=== PATIENT | male | born 1965 | race Caucasian/White ===

== ENCOUNTER 2016-12-17 23:30 | Inpatient (IN) ==
--- NOTE | 2016-12-18 01:23 | Emergency Department Note ---
Disposition Clinical Impression: Cellulitis and abscess of left lower extremity Disposition: Admitted As Inpatient Condition: Fair Referrals: NO,PCP [Primary Care Provider] - Forms: ED Satisfaction Letter Time of Disposition: 05:40 Wound/Laceration HPI - General Chief Complaint: ED Extremity Problem,Nontraumatic Stated Complaint: left leg seeping Time Seen by Provider: 12/18/16 00:41 Source: patient Mode of arrival: ambulatory Limitations: no limitations Nursing Notes Reviewed: Yes Vital Signs Reviewed: Yes - History of Present Illness HPI Narrative: Alert and oriented nontoxic-appearing 51-year-old male presents for evaluation of a left posterior thigh wound that has been present for the past 5 months. The patient states that he is underwent multiple rounds of oral antibiotics including Bactrim and Keflex. He states that he has been prescribed topical antibiotic ointments that he believes was mupirocin, however the wound remains and he feels as though it is worsening. He complains of some generalized malaise but denies any fever, chills, nausea, or vomiting. He does complain of a moderate degree of purulent drainage from the area of ulceration on his left posterior thigh. He states that that he male of drainage has increased over the course of the past several days. He just finished a round of Keflex 10 days ago per patient report. Onset (ago): month(s) (5) Extremity Location: Left: thigh Patient Tetanus UTD: Yes Treatments prior to arrival: other (Oral Antibiotics, multiple rounds) - Related Data Previous Rx's Medication Instructions Recorded Sulfamethoxazole/Trimeth DS 1 each PO BID #14 tablet 10/09/16 [Bactrim DS] cephALEXin [Keflex] 500 mg PO TID #21 capsule 10/09/16 Allergies Allergy/AdvReac Type Severity Reaction Status Date / Time No Known Allergies Allergy Verified 12/18/16 00:03 All systems ED: reviewed and negative except as stated. Constitutional: Denies: fever, chills, weakness, weight change Eyes: Denies: eye pain, eye discharge, vision change ENT ED: Denies: ear pain, throat pain, dental pain, hearing loss, epistaxis, congestion, dysphagia Cardiovascular: Denies: chest pain, palpitations, dyspnea on exertion, edema, syncope Respiratory: Denies: cough, dyspnea, wheezes, hemoptysis, stridor Gastrointestinal: Denies: abdominal pain, nausea, vomiting, diarrhea, constipation, hematemesis, melena, hematochezia Genitourinary: Denies: urgency, dysuria, frequency, hematuria Musculoskeletal: Denies: back pain, neck pain, arthralgia, myalgia Integumentary: Reports: as per HPI, other (Left thigh wound). Denies: rash, abrasion, lesions Neurological: Denies: headache, weakness, numbness, paresthesias, confusion, abnormal gait, vertigo Psychiatric: Denies: anxiety, depression, suicidal thoughts, homicidal thoughts , auditory hallucinations, visual hallucinations Endocrine: Denies: fatigue Hematological/Lymphatic: Denies: easy bleeding, easy bruising Allergic/Immunologic: Denies: facial swelling, urticaria Past Medical History - Past Medical History Attestation: Yes The following information was validated with the patient. Source: patient, nursing notes reviewed Medical history: Reports: other Psychiatric history: Reports: no psych history - Social History Smoking Status: Former smoker Smokeless Tobacco Status: No Alcohol use: Reports: occasionally Drug use: Reports: none Physical Exam - General Limitations: no limitations General appearance: alert - Head Head exam: atraumatic, normocephalic, normal inspection - Eye Eye exam: Present: normal appearance, PERRL, EOMI. Absent: nystagmus - ENT ENT exam: mucous membranes moist - Neck Neck exam: Present: normal inspection, full ROM, trachea midline - Chest Chest inspection: Present: normal inspection, symmetric chest wall rise - Respiratory Respiratory exam: Present: normal lung sounds bilaterally. Absent: respiratory distress, wheezes, stridor, accessory muscle use, prolonged expiratory phase - Cardiovascular Cardiovascular exam: Present: regular rate, normal rhythm, normal heart sounds - Abdominal Exam Abdominal exam: Present: soft, Non-Tender, normal bowel sounds. Absent: tenderness, distention, guarding, rebound, rigidity - Extremities Exam Extremities exam: Present: normal inspection, full ROM. Absent: tenderness, pedal edema - Expanded Lower Extremity Exam Upper leg exam: Present: other 1 - Approximately 1 cm x 1 cm area of ulceration that is draining a purulent discharge. There is a moderate degree of surrounding erythema. The area is exquisitely tender to touch. - Neurological Exam Neurological exam: Present: alert, oriented X3 - Psychiatric Psychiatric exam: Present: normal affect, normal mood - Skin Skin exam: Present: warm, dry, intact, normal color Course Course Narrative: 0538: I spoken with Dr. Aldrich, hospitalist on-call. Dr. Aldrich has accepted the patient to admission under the hospitalist service. Vital Signs Temperature 98.2 F 12/17/16 23:59 Pulse Rate 89 12/17/16 23:59 Respiratory Rate 16 12/17/16 23:59 Blood Pressure 149/99 12/17/16 23:59 O2 Sat by Pulse Oximetry 96 12/17/16 23:59 Temperature 98.2 F 12/17/16 23:59 Pulse Rate 84 12/18/16 04:20 Respiratory Rate 18 12/18/16 04:20 Blood Pressure 142/90 12/18/16 04:20 O2 Sat by Pulse Oximetry 97 12/18/16 04:20 Oxygen Delivery Oxygen Delivery Room Air Wound/Laceration - Medical Records Medical records reviewed: Yes I reviewed the patient's medical records. - Lab Data Lab results reviewed: Yes I reviewed the patient's lab results. Lab results narrative: Lab Results 12/18/16 12/18/16 12/18/16 Range/Units 01:31 01:31 01:31 WBC 11.6 H (4.3-11.1) K/mcL RBC 5.04 (4.19-5.50) M/mcL Hgb 15.6 (12.9-16.9) g/dL Hct 45.9 (37.5-50.1) % MCV 91.1 (83.0-100.0) fL MCH 31.0 (28.0-33.3) pg MCHC 34.0 (31.6-35.5) g/dL RDW 12.5 (11.5-14.5) % Plt Count 263 (140-400) K/mcL MPV 10.0 (9.4-12.4) fL Immature Gran % 0.9 (0-4) % Seg Neutrophils % 49.3 % Lymphocytes % 38.5 % Monocytes % 7.7 % Eosinophils % 2.6 % Basophils % 1.0 % Neutrophils # 5.7 (1.6-8.9) K/mcL Lymphocytes # 4.5 (0.6-4.6) K/mcL Monocytes # 0.9 (0.0-1.3) K/mcL Eosinophils # 0.3 (0.0-0.6) K/mcL Basophils # 0.1 (0.0-0.2) K/mcL Immature Plt Fraction 4.3 (1.1-6.1) % ESR 10 (0-10) mm/hr Sodium 137 (136-145) mEq/L Potassium 4.2 (3.5-4.5) mEq/L Chloride 106 (98-109) mEq/L Carbon Dioxide 21 (19-29) mEq/L BUN 17 (8-26) mg/dL Creatinine 1.00 (0.72-1.25) mg/dL Est GFR ( Amer) > 60 (> 60) Est GFR (Non-Af Amer) > 60 (> 60) BUN/Creatinine Ratio 17 (6-26) Glucose 116 H (70-99) mg/dL Calculated Osmolality 287 (280-300) Calcium 9.4 (8.6-10.8) mg/dL C-Reactive Protein 4 (Less than 5) mg/L Result diagrams: 12/18/16 01:31 12/18/16 01:31 Lab Results 12/18/16 12/18/16 12/18/16 Range/Units 01:31 01:31 01:31 WBC 11.6 H (4.3-11.1) K/mcL RBC 5.04 (4.19-5.50) M/mcL Hgb 15.6 (12.9-16.9) g/dL Hct 45.9 (37.5-50.1) % MCV 91.1 (83.0-100.0) fL MCH 31.0 (28.0-33.3) pg MCHC 34.0 (31.6-35.5) g/dL RDW 12.5 (11.5-14.5) % Plt Count 263 (140-400) K/mcL MPV 10.0 (9.4-12.4) fL Immature Gran % 0.9 (0-4) % Seg Neutrophils % 49.3 % Lymphocytes % 38.5 % Monocytes % 7.7 % Eosinophils % 2.6 % Basophils % 1.0 % Neutrophils # 5.7 (1.6-8.9) K/mcL Lymphocytes # 4.5 (0.6-4.6) K/mcL Monocytes # 0.9 (0.0-1.3) K/mcL Eosinophils # 0.3 (0.0-0.6) K/mcL Basophils # 0.1 (0.0-0.2) K/mcL Immature Plt Fraction 4.3 (1.1-6.1) % ESR 10 (0-10) mm/hr Sodium 137 (136-145) mEq/L Potassium 4.2 (3.5-4.5) mEq/L Chloride 106 (98-109) mEq/L Carbon Dioxide 21 (19-29) mEq/L BUN 17 (8-26) mg/dL Creatinine 1.00 (0.72-1.25) mg/dL Est GFR ( Amer) > 60 (> 60) Est GFR (Non-Af Amer) > 60 (> 60) BUN/Creatinine Ratio 17 (6-26) Glucose 116 H (70-99) mg/dL Calculated Osmolality 287 (280-300) Calcium 9.4 (8.6-10.8) mg/dL C-Reactive Protein 4 (Less than 5) mg/L - Radiology Data Radiology results reviewed: Yes I reviewed the patient's radiology results. Femur CT 12/18/16 02:26 IMPRESSION: Small, 3.2 x 1.2 cm fluid collection adjacent to the biceps femoris. This is indeterminate and contains no evidence of underlying air or gas. ORIF remote appearing femoral diaphyseal fracture. D/ / Floyd Salvador MD / Floyd Salvador MD Interpreting Provider: Floyd Salvador MD Attestation Statement - Attestation Attestation: I personally interviewed and examined this patient and my medical decision- making was reviewed with the ERICA, Sarah Pro. I agree with the documented findings , disposition and treatment plan as described except to the extent set forth below. This 51-year-old white male who presents to the emergency department with recurrent abscess to the left posterior thigh is draining purulent material. Patient has been on multiple rounds of antibiotics do various urgent cares including a dose of IV antibiotics as well as topical antibiotics. Patient states he was supposed to be set up to be managed at the wound care clinic at this never got scheduled. Patient's here because he is having increasing pain and tenderness to palpation of the site, purulent drainage from the wound which is open he has no surrounding erythema or proximal streaking. The wound is not involving the joint above or below. Patient with no fevers or other constitutional symptoms. I agree with the pt's physical exam findings as documented. Patient's labs including white count sedimentation rate and CRP are all within normal limits. CT of the left femur does show a circumscribed fluid collection near the biceps femoris. Planned to make the patient with a surgical consult and initiate antibiotics. After speaking with the patient relaying the results of the testing patient has decided he wants to leave AGAINST MEDICAL ADVICE. Patient is refusing admission. Patient will be discharged from the ED AMA and advised to follow up with general surgery on outpatient basis. Patient later changed his mind prior to leaving the department and is willing to stay for admission for further hydration and surgical consult. Case was discussed with hospitalist.
[2016-12-18 01:53] LABS: Basophils # 0.1 K/mcL (0.0-0.2); Eosinophils # 0.3 K/mcL (0.0-0.6); Eosinophils % 2.6 %; Hematocrit 45.9 % (37.5-50.1); Hemoglobin 15.6 g/dL (12.9-16.9); Immature Granulocytes % 0.9 % (0-4); Immature Platelets 4.3 % (1.1-6.1); Lymphocytes # 4.5 K/mcL (0.6-4.6); Lymphocytes % 38.5 %; Mean Corpuscular Volume 91.1 fL (83.0-100.0); Monocytes # 0.9 K/mcL (0.0-1.3); Monocytes % 7.7 %; Neutrophils # 5.7 K/mcL (1.6-8.9); Platelet Count 263 K/mcL (140-400); Red Blood Count 5.04 M/mcL (4.19-5.50); Red Cell Distribution Width 12.5 % (11.5-14.5); Segmented Neutrophils % 49.3 %
[2016-12-18 02:04] LABS: BUN/Creatinine Ratio 17 (6-26); Blood Urea Nitrogen 17 mg/dL (8-26); C-Reactive Protein 4 mg/L (Less than 5); Calcium 9.4 mg/dL (8.6-10.8); Carbon Dioxide 21 mEq/L (19-29); Chloride 106 mEq/L (98-109); Glucose 116 mg/dL (70-99); Osmolality,Calculated 287 (280-300); Potassium 4.2 mEq/L (3.5-4.5); Sodium 137 mEq/L (136-145); eGFR For African Americans > 60 (> 60); eGFR For Non-African Americans > 60 (> 60)
[2016-12-18] MEDS ORDERED: Vancomycin 1,000 MG in D5% in Water 250 ML IVPB ONE (05:37)
[2016-12-18] MEDS ORDERED: Piperacillin/Tazobactam 3.375 GM in D5% in Water (Mini-Bag+) 100 ML IVPB ONE (05:38)
[2016-12-18] MEDS ORDERED: *HR* OxyCODONE Immed Rel 5 MG TABLET PO PRN (09:37)
[2016-12-18] MEDS ORDERED: Naloxone 0.4 MG/ML INJ IVP PRN (09:37)
[2016-12-18] MEDS ORDERED: Ondansetron 4 MG/2 ML VIAL IVP PRN (09:37)
[2016-12-18] MEDS ORDERED: Acetaminophen 325 MG TABLET PO PRN (09:37)
--- NOTE | 2016-12-18 09:41 | Internal Med History&Physical ---
Date of Encounter: 12/18/16 Time of Encounter: 09:41 Assessment and Plan (1) Cellulitis Current visit: Yes Status: Chronic Left posterior thigh nonhealing ulcer and mild cellulitis, failed outpatient treatment. No fever, tachycardia, leukocytosis. ESR and CRP noted to be normal. CT left thigh done in the emergency room shows a small 3 x 1 cm undetermined fluid collection close to biceps femoris, no hardware complications noted. Follow-up blood and wound cultures and continue broad- spectrum IV antibiotics-vancomycin and Zosyn until culture results are available. Pain control with when necessary Tylenol and oxycodone. Case discussed with orthopedics Dr. Jackson, who recommends outpatient wound care management. Surgery consult for further assessment of the fluid collection and local wound care. Patient has no insurance and no primary care provider at this time. donor services team leader consult for outpatient care coordination as he is noted to have this chronic wound for at least the last 3 months. Qualifiers: Site of cellulitis: extremity Site of cellulitis of extremity: lower extremity Laterality: left Qualified Code(s): L03.116 - Cellulitis of left lower limb (2) Essential hypertension Current visit: Yes Status: Chronic Patient likely has undiagnosed hypertension. Continue to monitor for now. Low- sodium diet. Internal Medicine - H&P: HPI Chief complaint: Left thigh wound Admitted From: Emergency Dept Plans for Post Hospital Care: Home History of present illness: Mr. Duckworth is a 51 year old male with no significant medical history and no medical follow-up presents with complaints of draining wound in his left thigh. Patient reports that he noticed a pimple on the back of his left thigh, about 5 months ago which has gradually increased in size and over the last 3 months, there has been a small wound in its place with intermittent drainage of purulent fluid associated with some sharp pain. No associated fever, chills, nausea or vomiting. He has no difficulty bearing weight on his left leg or ambulating. 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 Patient has been to multiple urgent care centers and emergency rooms over the past 3 months and has been on multiple oral antibiotics and antibiotic creams with no definitive improvement in his symptoms. Past Med Surg Social Fam HX - Past Medical History Source: patient Medical history: no medical history, other Psychiatric history: no psych history - Past Surgical History Surgical History: orthopedic, other (Left femur ORIF) - Social History Smoking Status: Never smoker Smokeless Tobacco Status: No Alcohol use: occasionally Drug use: none Occupational status: employed Current living situation: Home, With Family Activity Level: Independent ambulation Recent Out of Country Travel Within the Last 8 Weeks: No - Family History Mother Living Status: Hx Family Cardiac Disorders: Yes (aneurysm) Father Living Status: Hx Family Cancer: Yes Internal Medicine - H&P: Meds Allergies No Known Allergies Allergy (Verified 12/18/16 00:03) All Systems PM: A 10-system review of systems was performed and is negative for pertinent findings except as documented above in the HPI. - Constitutional Constitutional: no chills, no fever(s), no night sweats - EENT Eyes: no change in vision, no discharge, no pain, no photophobia Ears: no ear discharge, no ear pain, no tinnitus Nose, mouth and throat: no dysphagia, no nasal discharge, no neck pain, no sore throat - Cardiovascular Cardiovascular ROS IM: no chest pain, no diaphoresis, no dyspnea, no lightheadedness, no palpitations, no syncope - Respiratory Respiratory: no cough, no dyspnea, no wheezing, no excessive phlegm production - Gastrointestinal Gastrointestinal: no abdominal pain, no diarrhea, no hematemesis, no hematochezia, no melena, no nausea, no vomiting - Musculoskeletal Musculoskeletal ROS IM: no numbness, no tingling - Integumentary Integumentary IM: as per HPI, non-healing lesions - Neurological Neurological ROS: no confusion, no convulsions, no focal weakness, no numbness, no tingling, no tremor(s) - Hematologic/Lymphatic Hematologic/Lymphatic: no easy bruising - Constitutional Vitals: Temp Pulse Resp BP Pulse Ox 97.7 F 56 18 128/82 96 12/18/16 08:14 12/18/16 08:14 12/18/16 08:14 12/18/16 08:14 12/18/16 08:14 General appearance: Present: A&O X 3, answers questions appropriately - Respiratory Respiratory exam: Present: CTAB. Absent: accessory muscle use, rales, rhonchi, wheezes - Cardiovascular Cardiovascular exam: Present: RRR, +S1, +S2. Absent: diastolic murmur, gallop, rubs, systolic murmur - GI/Abdominal GI/Abdominal exam: Present: normal bowel sounds, soft, no peritoneal signs. Absent: distended, tenderness - Extremities Exam Extremities exam: Present: full ROM, warm, radial pulses palpable and symetrical. Absent: calf tenderness, cyanotic, pedal edema Additional comments: Left posterior mid thigh with 1-2 cm small stage II ulcer with yellow base, no active discharge. Surrounding mild erythema and induration. Mild tenderness over the ulcer. - Neurological Exam Neurological exam: Present: CN II-XII intact, oriented X3, no focal deficits. Absent: pronater drift, facial droop, speech deficit - Skin Skin exam: Present: dry, intact Internal Med - H&P Results - Labs CBC & Chem 7: 12/18/16 01:31 12/18/16 01:31
[2016-12-18] MEDS ORDERED: Vancomycin 1,500 MG in D5% in Water 250 ML IVPB SCH (10:00)
[2016-12-18] MEDS: hydroCHLOROthiazide 25 MG TABLET PO SCH (16:13)
[2016-12-18] MEDS: Piperacillin/Tazobactam 3.375 GM in D5% in Water (Mini-Bag+) 100 ML IVPB SCH ×2 (16:14→23:51)
[2016-12-18] MEDS: Vancomycin 1,750 MG in D5% in Water 500 ML IVPB SCH (17:53)
[2016-12-19 05:49] LABS: Basophils # 0.1 K/mcL (0.0-0.2); Eosinophils # 0.3 K/mcL (0.0-0.6); Eosinophils % 3.2 %; Hematocrit 47.3 % (37.5-50.1); Hemoglobin 16.1 g/dL (12.9-16.9); Immature Granulocytes % 0.9 % (0-4); Lymphocytes % 31.7 %; Mean Corpuscular Hemoglobin 30.6 pg (28.0-33.3); Mean Corpuscular Volume 89.8 fL (83.0-100.0); Mean Platelet Volume 9.9 fL (9.4-12.4); Monocytes # 0.9 K/mcL (0.0-1.3); Monocytes % 9.6 %; Platelet Count 230 K/mcL (140-400); Red Blood Count 5.27 M/mcL (4.19-5.50); Red Cell Distribution Width 12.3 % (11.5-14.5); Segmented Neutrophils % 53.6 %
[2016-12-19 06:09] LABS: BUN/Creatinine Ratio 14 (6-26); Blood Urea Nitrogen 14 mg/dL (8-26); Calcium 9.2 mg/dL (8.6-10.8); Carbon Dioxide 29 mEq/L (19-29); Chloride 101 mEq/L (98-109); Glucose 123 mg/dL (70-99); Osmolality,Calculated 284 (280-300); Potassium 3.8 mEq/L (3.5-4.5); Sodium 136 mEq/L (136-145); eGFR For African Americans > 60 (> 60); eGFR For Non-African Americans > 60 (> 60)
[2016-12-19] MEDS: Vancomycin 1,750 MG in D5% in Water 500 ML IVPB SCH ×2 (06:21→17:54)
[2016-12-19] MEDS: hydroCHLOROthiazide 25 MG TABLET PO SCH (08:36)
[2016-12-19] MEDS: Piperacillin/Tazobactam 3.375 GM in D5% in Water (Mini-Bag+) 100 ML IVPB SCH ×2 (08:36→15:42)
--- NOTE | 2016-12-19 09:09 | Internal Med Progress Note ---
<Heramn Gamboa - Last Filed: 12/19/16 15:15> Date of Encounter: 12/19/16 Time of Encounter: 09:06 - Assessment and plan (1) Cellulitis and abscess of left lower extremity Current Visit: Yes Status: Acute Assessment and plan: Left posterior thigh nonhealing ulcer and mild cellulitis, failed outpatient treatment for the past 3 months. No fever, tachycardia, leukocytosis. Patient' s labs including white count sedimentation rate and CRP are all within normal limits. CT of the left femur shows a circumscribed fluid collection near the biceps femoris. Awaiting surgical consult Blood and wound cultures pending Continue antibiotics vancomycin and Zosyn (day 1). Continue ibuprofen, Percocet for pain Patient has no insurance and no primary care provider at this time. director of social services consult for outpatient care coordination as he is noted to have this chronic wound for at least the last 3 months. (2) Failure of outpatient treatment Current Visit: Yes Status: Acute Assessment and plan: Left posterior thigh nonhealing ulcer and mild cellulitis, failed outpatient treatment with Bactrim DS twice a day and Cipro 3 times a day for the past 3 months. (3) Infected hardware in left leg Current Visit: Yes Status: Suspected Assessment and plan: Suspected hardware infection given failed out patient antibiotic treatment for the past 3 months. Patient reports ORIF femoral diaphyseal fracture in 1991 and was told plate should come out within 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 Small indeterminate fluid collection just adjacent to the superficial fascial margin of the biceps femoris measuring up to 3.2 x 1.2cm. Ortho/ Dr. Partida consulted. Awaiting further recommendations Qualifiers: Encounter type: subsequent encounter Qualified Code(s): T84.7XXD - Infection and inflammatory reaction due to other internal orthopedic prosthetic devices, implants and grafts, subsequent encounter (4) Essential hypertension Current Visit: Yes Status: Chronic Assessment and plan: Patient likely has undiagnosed hypertension. Continue to monitor for now. Low- sodium diet. (5) Obesity (BMI 30-39.9) Current Visit: Yes Status: Acute Assessment and plan: Discussed diet and exercise (6) DVT prophylaxis Current Visit: Yes Status: Acute Assessment and plan: SCDs, no anticoagulation at this time due to possible surgery. Patient seen and examined, plan discussed with and agreed upon with Dr. Ronald - Subjective Interval history: Tissue resting comfortably in bed. Patient denies any pain or drainage at left posterior thigh abscess site. Patient is tolerating by mouth intake and awaiting surgery recommendations - Constitutional Vitals: Temp Pulse Resp BP Pulse Ox 97.5 F L 54 16 134/87 96 12/19/16 07:55 12/19/16 07:55 12/19/16 07:55 12/19/16 07:55 12/19/16 07:55 General appearance: Present: cooperative, A&O X 3, no acute distress, obese, answers questions appropriately - Head Head exam: Present: atraumatic, normocephalic - Eye Eye exam: Present: PERRL, conjuntiva pink, sclera anicteric Pupils: Present: PERRL - ENT ENT exam: Present: mucous membranes moist, normal oropharynx - Neck Neck exam general surgery: Present: supple, trachea midline. Absent: lymphadenopathy - Respiratory Respiratory exam: Present: CTAB. Absent: accessory muscle use, rales, rhonchi, wheezes - Cardiovascular Cardiovascular exam: Present: RRR, +S1, +S2. Absent: diastolic murmur, gallop, rubs, systolic murmur - GI/Abdominal GI/Abdominal exam: Present: normal bowel sounds, soft, no peritoneal signs. Absent: distended, tenderness - Extremities Exam Extremities exam: Present: warm, radial pulses palpable and symetrical. Absent : calf tenderness, cyanotic, pedal edema Additional comments: 1 x 1 cm ulceration at left posterior lateral thigh with minimal draining / purulent discharge. Mild surrounding erythema. Positive tenderness to palpation, no proximal streaking, positive pain with range of motion - Neurological Exam Neurological exam: Present: CN II-XII intact, oriented X3, no focal deficits. Absent: pronater drift, facial droop, speech deficit - Psychiatric Psychiatric exam: Present: normal affect, normal mood - Skin Skin exam: Present: dry, intact Additional comments: 1 x 1 cm ulceration at left posterior lateral thigh with minimal draining / purulent discharge. Mild surrounding erythema, no proximal streaking Internal Medicine: Result - Labs CBC & Chem 7: 12/19/16 05:09 12/19/16 05:09 Labs: Short CBC 12/19/16 Range/Units 05:09 WBC 9.4 (4.3-11.1) K/mcL Hgb 16.1 (12.9-16.9) g/dL Hct 47.3 (37.5-50.1) % Plt Count 230 (140-400) K/mcL Neutrophils # 5.0 (1.6-8.9) K/mcL BMP 12/19/16 05:09 Sodium 136 Potassium 3.8 Chloride 101 Carbon Dioxide 29 BUN 14 Creatinine 1.00 Glucose 123 H Calcium 9.2 Consult Discharge Plan - Plan Referrals: NO,PCP [Primary Care Provider] - <Teto Cardenas - Last Filed: 12/19/16 17:57> Date of Encounter: 12/19/16 - Assessment and plan (1) Cellulitis Current Visit: Yes Status: Chronic Qualifiers: Site of cellulitis: extremity Site of cellulitis of extremity: lower extremity Laterality: left Qualified Code(s): L03.116 - Cellulitis of left lower limb (2) Essential hypertension Current Visit: Yes Status: Chronic (3) Obesity (BMI 30-39.9) Current Visit: Yes Status: Acute (4) Infected hardware in left leg Current Visit: Yes Status: Suspected Qualifiers: Encounter type: subsequent encounter Qualified Code(s): T84.7XXD - Infection and inflammatory reaction due to other internal orthopedic prosthetic devices, implants and grafts, subsequent encounter - Constitutional Vitals: Temp Pulse Resp BP Pulse Ox 97.8 F 79 15 143/89 95 12/19/16 16:02 12/19/16 16:02 12/19/16 16:02 12/19/16 16:02 12/19/16 16:02 Internal Medicine: Result - Labs CBC & Chem 7: 12/19/16 05:09 12/19/16 05:09 - Attending Attestation I examined this patient and my medical decision-making was reviewed with the Resident Physician on 12/19/16. I agree with the documented findings, disposition and treatment plan as described except to the extent set forth below. Mr. Duckworth is currently admitted for persistent infected L leg with drainage. Currently on IV abx. Pt is moderate to high risk due to potential for worsening infection and management of IV abx, Mr. Duckworth feels OK and wants to go home soon. He has had persistent drainage at home but not since admission. Has been evaluated by surgery but no intervention needed. stated he has been on abx most of the last 3 months. He has had a prior orthopedic procedure to that leg (CT shows intramedullary rizwan) and stated he was told to have it removed 5 years after procedure and procedure was nearly 25 years ago. No fever or chills. No GI symptoms. Exam Alert. Comfortable Mucus membranes dry Heart reg No wheeze Abd soft No edema or drainage I/P 1. Cellullitis L leg - orthopedic hardware in place - ortho to see for an opinion regarding removal if needed. Continue IV abx tonight. 2. HTN on home meds 3. Obesity Further diagnoses and plan as above.
--- NOTE | 2016-12-19 13:48 | General Surgery Consult Note ---
Date of Encounter: 12/19/16 Time of Encounter: 13:47 Assessment and Plan (1) Cellulitis and abscess of left lower extremity Current Visit: Yes Status: Acute CT of the femur on 12/18/16 with contrast demonstrated a small, 3.21.2 cm fluid collection adjacent to the biceps femoris. No fluctance noted. No intervention required. Cardiac diet Pain control IV Vancomycin and Zosyn Wound and blood cultures preliminary show no growth WBC trending down 11.6>9.4, CRP wnl Afebrile Wound Care - See orders Supportive Care Discharge planning - Plan for home tomorrow with PO abx and Outpatient followup needed with [facility] (2) Failure of outpatient treatment Current Visit: Yes Status: Acute (3) Essential hypertension Current Visit: Yes Status: Chronic started on HCTZ. Defer management to hospitalist. (4) Obesity (BMI 30-39.9) Current Visit: Yes Status: Acute (5) DVT prophylaxis Current Visit: Yes Status: Acute History of Present Illness Consult date: 12/18/16 Reason for consult: other (abscess) History of present illness: Mr. Duckworth is a very pleasant 51-year-old male with a past medical history of hypertension who presented to the [facility] [place] emergency department with a chief complaint of left eye pain for duration of roughly 3 months. He reports for further months ago he fell down some steps at home and suffered a left posterior thigh wound that has not healed well. Over the next 3 months, he states there is been intermittent drainage of purulent fluid associated with sharp pain. He has been seen in multiple clinics and ERs for treatment to include oral and IV antibiotics and creams. Most recently, he failed outpatient therapy for 19 days with Cipro and Kelfex. On arrival to the ED, his white blood cell count was 11.6, CRP is 4, vitals signs stable and CT of the femur with contrast demonstrated a small, 3.21.2 cm fluid collection adjacent to the biceps femoris. Patient was subsequently admitted to with pain control, IV Vancomycin and Zosyn with pending blood and wound cultures. Patient does have a history of open left femoral shaft fracture with closed left femoral neck fracture definitively treated with ORIF about 30 years ago. Surgery was consulted for further evaluation of the LE abscess. This afternoon , his WBC dropped to 9.4, vitals signs stable, left posterior wound present with minimal drainage and no fluctuance was noted for possible intervention. Will proceed with daily wound care and IV Abx. Past Med Surg Social Fam HX - Past Medical History Medical history: other Psychiatric history: no psych history - Past Surgical History Surgical History: orthopedic, other (Left femur ORIF) - Social History Smoking Status: Former smoker Smokeless Tobacco Status: No Alcohol use: occasionally Drug use: none - Family History Mother Living Status: Hx Family Cardiac Disorders: Yes (aneurysm) Father Living Status: Hx Family Cancer: Yes Medications and Allergies No Known Home Drugs 12/18/16 [History] Allergies No Known Allergies Allergy (Verified 12/18/16 00:03) Review of Systems All systems PM: A 10-system review of systems was performed and is negative for pertinent findings except as documented above in the HPI. - Constitutional as per HPI - EENT Nose, mouth and throat: as per HPI - Cardiovascular as per HPI - Respiratory as per HPI - Gastrointestinal as per HPI - Genitourinary as per HPI - Musculoskeletal as per HPI - Integumentary as per HPI - Neurological as per HPI - Psychiatric as per HPI General Surgery Exam Initial Vital Signs Temp Pulse Resp BP Pulse Ox 98.2 F 89 16 149/99 96 12/17/16 23:59 12/17/16 23:59 12/17/16 23:59 12/17/16 23:59 12/17/16 23:59 - General physical appearance no distress, obese - Eyes normal ocular movement - ENT normal mucosa - Neck trachea midline - Respiratory normal expansion, normal respiratory effort, clear to auscultation - Cardiovascular Cardiovascular exam: Present: RRR - Abdomen Abdomen general surgery: Present: bowel sounds present, soft, non tender - Integumentary Integumentary general surgery: Present: other (area of erythema approx [id number] on left posterior thigh. one drainage site noted with very minimal purlent fluid present. Central granulation of approx 1cm noted. ) - Neurologic Present: CN 2-12 grossly intact - Psychiatric Psychiatric general surgery: Present: appropriate, oriented to person, oriented to place, oriented to time, speech is normal, memory intact Exam Initial Vital Signs Temp Pulse Resp BP Pulse Ox 98.2 F 89 16 149/99 96 12/17/16 23:59 12/17/16 23:59 12/17/16 23:59 12/17/16 23:59 07/15/17 23:59 Results - Labs 12/19/16 05:09 12/19/16 05:09 Abnormal lab results Glucose 123 mg/dL (70-99) H 12/19/16 05:09 Diabetes panel 12/19/16 Range/Units 05:09 Sodium 136 (136-145) mEq/L Potassium 3.8 (3.5-4.5) mEq/L Chloride 101 (98-109) mEq/L Carbon Dioxide 29 (19-29) mEq/L BUN 14 (8-26) mg/dL Creatinine 1.00 (0.72-1.25) mg/dL Glucose 123 H (70-99) mg/dL Calcium 9.2 (8.6-10.8) mg/dL Calcium panel 12/19/16 Range/Units 05:09 Calcium 9.2 (8.6-10.8) mg/dL Pituitary panel 12/19/16 Range/Units 05:09 Sodium 136 (136-145) mEq/L Potassium 3.8 (3.5-4.5) mEq/L Chloride 101 (98-109) mEq/L Carbon Dioxide 29 (19-29) mEq/L BUN 14 (8-26) mg/dL Creatinine 1.00 (0.72-1.25) mg/dL Glucose 123 H (70-99) mg/dL Calcium 9.2 (8.6-10.8) mg/dL Adrenal panel 12/19/16 Range/Units 05:09 Sodium 136 (136-145) mEq/L Potassium 3.8 (3.5-4.5) mEq/L Chloride 101 (98-109) mEq/L Carbon Dioxide 29 (19-29) mEq/L BUN 14 (8-26) mg/dL Creatinine 1.00 (0.72-1.25) mg/dL Glucose 123 H (70-99) mg/dL Calcium 9.2 (8.6-10.8) mg/dL All other labs normal. Consult Discharge Plan - Plan Referrals: NO,PCP [Primary Care Provider] -
[2016-12-19] MEDS: Ibuprofen 600 MG TABLET PO SCH (15:42)
--- NOTE | 2016-12-19 19:22 | Orthopedic Consult Note ---
Date of Encounter: 12/19/16 Time of Encounter: 19:08 History of Present Illness Chief complaint: Nonhealing wound left posterolateral thigh HPI: Mr. Duckworth is a 51 year old male who had undergone intramedullary nailing in 1991 at [facility] for an open left distal femur fracture. The patient states his fracture was complicated by a postoperative infection that required a secondary incision and drainage and packing of the wound with delayed healing. Sensation states that he has not had any problems with the leg until several months ago when he fell off a porch and Carlos's left knee and the left posterolateral thigh. The knee ultimately healed but his posterolateral thigh has remained automatic with chronic nonhealing. He had been on antibiotics for probably 3 months time without resolution. Patient states that his wound was draining clear serous fluid until just recently when it seemed to slow down. Patient was admitted with the above complaint. For complete history and physical data please refer to the completed portion of the medical records. Pertinent orthopedic examination at this time reveals a well-healed surgical incision about the left hip region as well as a small incision distally consistent with a distal locking screws of the femoral nail. There is an anterolateral wound consistent with a fasciotomy site or area of treatment for the open fracture. The fascia is open as there is muscle bulging. In the posterolateral thigh there is approximately a 1 centimeter nonhealing ulceration with some eschar and slough. There is no significant surrounding erythema or edema. No significant drainage is encountered. Laboratory data includes a white blood cell count of 11.6 that has dropped to 9.4. Sedimentation rate is 10. I reviewed a CT scan of his left femur. This reveals an intramedullary nail from the trochanter down to the knee. There is no proximal or distal locking fixation, I suspect these were removed at the time of either his incision and drainage for another point. The fracture is healed with some deficiencies. There is no evidence of bony destruction. There are lucencies around the nail (as would be expected). There are findings consistent with a opening of the anterolateral fascia with some atrophic changes seen in the muscle belly of the vastus lateralis. Posterolaterally there is what appears to be some stranding and changes within the subcutaneous tissue. This does not appear to extend through the fascia. Impression: Nonhealing ulcer left posterolateral thigh Recommendation: Do not advise any surgical intervention. There are no findings to suggest a deep-seated infection or osteomyelitis. Attempts to remove the nail would be fraught with much difficulty. Would recommend the patient be seen and treated in the wound care clinic setting. Can see the patient as needed if problems persist after appropriate treatment. Thank you very much for allowing me to see care for Mr. Duckworth. Sincerely, Emmanuel Partida,DO Past Med Surg Social Fam HX - Past Medical History Medical history: other Psychiatric history: no psych history - Past Surgical History Surgical History: orthopedic, other (Left femur ORIF) - Social History Smoking Status: Former smoker Smokeless Tobacco Status: No Alcohol use: occasionally Drug use: none - Family History Mother Living Status: Hx Family Cardiac Disorders: Yes (aneurysm) Father Living Status: Hx Family Cancer: Yes Medications and Allergies No Known Home Drugs 12/18/16 [History] Allergies No Known Allergies Allergy (Verified 12/18/16 00:03) All Systems Reviewed: A 10-system review of systems was performed and is negative for pertinent findings except as documented above in the HPI. Physical Exam - Constitutional Vitals: Temp Pulse Resp BP Pulse Ox 97.8 F 79 15 143/89 95 12/19/16 16:02 12/19/16 16:02 12/19/16 16:02 12/19/16 16:02 12/19/16 16:02 Results - Labs Result Diagrams: 12/19/16 05:09 12/19/16 05:09 Labs: Abnormal lab results Glucose 123 mg/dL (70-99) H 12/19/16 05:09 All other labs normal. - Diagnostic results Hip CT: image reviewed Knee CT: image reviewed Consult Discharge Plan - Plan Referrals: NO,PCP [Primary Care Provider] -
[2016-12-20] MEDS: Ibuprofen 600 MG TABLET PO SCH ×2 (00:08→07:40)
[2016-12-20] MEDS: Piperacillin/Tazobactam 3.375 GM in D5% in Water (Mini-Bag+) 100 ML IVPB SCH ×2 (00:09→07:41)
[2016-12-20 04:40] LABS: Basophils # 0.1 K/mcL (0.0-0.2); Basophils % 0.9 %; Eosinophils # 0.4 K/mcL (0.0-0.6); Eosinophils % 3.2 %; Hematocrit 46.8 % (37.5-50.1); Hemoglobin 16.7 g/dL (12.9-16.9); Immature Granulocytes % 0.8 % (0-4); Immature Platelets 5.1 % (1.1-6.1); Lymphocytes # 3.8 K/mcL (0.6-4.6); Lymphocytes % 32.2 %; Mean Corpuscular HGB Conc 35.7 g/dL (31.6-35.5); Mean Corpuscular Hemoglobin 31.6 pg (28.0-33.3); Mean Corpuscular Volume 88.6 fL (83.0-100.0); Mean Platelet Volume 10.2 fL (9.4-12.4); Monocytes # 1.2 K/mcL (0.0-1.3); Monocytes % 9.9 %; Neutrophils # 6.2 K/mcL (1.6-8.9); Platelet Count 244 K/mcL (140-400); Red Blood Count 5.28 M/mcL (4.19-5.50); Red Cell Distribution Width 12.4 % (11.5-14.5)
[2016-12-20 05:39] LABS: BUN/Creatinine Ratio 12 (6-26); Blood Urea Nitrogen 14 mg/dL (8-26); Calcium 9.2 mg/dL (8.6-10.8); Carbon Dioxide 26 mEq/L (19-29); Chloride 100 mEq/L (98-109); Glucose 128 mg/dL (70-99); Osmolality,Calculated 282 (280-300); Potassium 3.6 mEq/L (3.5-4.5); Sodium 135 mEq/L (136-145); eGFR For African Americans > 60 (> 60); eGFR For Non-African Americans > 60 (> 60)
[2016-12-20] MEDS: Vancomycin 1,750 MG in D5% in Water 500 ML IVPB SCH (05:39)
[2016-12-20] MEDS ORDERED: *HR* Enoxaparin 40 MG/0.4 ML SYRINGE SQ SCH (06:00)
[2016-12-20] MEDS: hydroCHLOROthiazide 25 MG TABLET PO SCH (07:40)
[2016-12-20 08:41] VITALS: BP 137/90
--- NOTE | 2016-12-20 11:09 | Discharge Summary ---
Date of Encounter: 12/20/16 Time of Encounter: 09:30 - Discharge Diagnosis (1) Cellulitis and abscess of left lower extremity Priority: Primary Status: Acute (2) Essential hypertension Priority: Secondary Status: Chronic (3) Obesity (BMI 30-39.9) Priority: Secondary Status: Acute (4) Failure of outpatient treatment Priority: Secondary Status: Acute (5) Infected hardware in left leg Priority: Secondary Status: Ruled-out Qualifiers: Encounter type: subsequent encounter Qualified Code(s): T84.7XXD - Infection and inflammatory reaction due to other internal orthopedic prosthetic devices, implants and grafts, subsequent encounter - Discharge Medications Prescriptions: Acetaminophen [Tylenol] 650 mg PO Q6HR PRN #30 tab PRN Reason: Mild Pain (1-3) Amoxicillin/Clavulanate [Augmentin] 875 mg PO BIDWM #20 tablet Collagenase Oint [Santyl] 30 gm TP DAILY #1 oint...g. hydroCHLOROthiazide [Hydrochlorothiazide] 25 mg PO DAILY #30 tab Home Medications: Acetaminophen [Tylenol] 650 mg PO Q6HR PRN #30 tab 12/20/16 [Rx] Amoxicillin/Clavulanate [Augmentin] 875 mg PO BIDWM #20 tablet 12/20/16 [Rx] Collagenase Oint [Santyl] 30 gm TP DAILY #1 oint...g. 12/20/16 [Rx] hydroCHLOROthiazide [Hydrochlorothiazide] 25 mg PO DAILY #30 tab 12/20/16 [Rx] Allergies/Adverse Reactions: Allergies No Known Allergies Allergy (Verified 12/18/16 00:03) Date of admission: 12/19/16 16:35 Primary care physician: PCP NO Consults: 12/18/16 09:38 Consult to Electronics Tech [CONS] Routine Reason for SW Consult: No insurance, PCP 12/18/16 09:46 Consult to Surgery [CONS] Routine Consulting Provider: Surgery [facility] Reason for Consult: Left posterior thigh wound Call Completed: Yes 12/19/16 14:30 Consult to Orthopedic Surgery [CONS] Routine Consulting Provider: Emmanuel Partida Reason for Consult: Possible hardware infection L femur, failed outpatient antibiotic therapy Time Notified: 14:33 Call Completed: Yes Discharging clinician: Logan Duron Anticipated date of discharge: 12/20/16 - Patient Status Disposition: Home, Self-Care Condition: Good Functional capacity at discharge: independent ambulation Overall status at discharge: patient is progressing back to baseline - Discharge Instructions Instructions: Cellulitis (DC), Chronic Hypertension (DC) Follow Up With: Nadeen Pena CNP [Advanced Practice Nurse] - 12/26/16 12:00 pm Additional Instructions: With wound care clinic in [place] with in 1 week Wound care for left lower back of the thigh wound: Cleanse with soap and water. Apply Santyl ashli thick. Cover with a moistened (with normal saline) 2x2, then cover with a dry dressing. - Diet and Activity Activity: increase activity as tolerated Diet: low fat, low cholesterol, low salt diet Hospital course: Mr. Duckworth is a 51 year old male with a history of essential hypertension and prior left femur open reduction and internal fixation presented to the ER with cellulitis and abscess in his left lower extremity in the backside of the left lower thigh. Was concerned for infection of his hardware in the left leg. Orthopedics was consulted. Patient was treated with IV antibiotics. His ESR and CRP are normal suggesting no chronic inflammation or infection. As such orthopedics recommended that the patient be treated with local wound care and he will be discharged on short course of oral antibiotics. If his symptoms get worse, he can follow up with orthopedics as outpatient. - Time Spent with Patient Total time spent providing and/or coordinating discharge services: Less than 30 minutes (25 min) - Constitutional Vitals: Temp Pulse Resp BP Pulse Ox 97.5 F L 70 18 137/90 94 12/20/16 08:37 12/20/16 08:37 12/20/16 08:37 12/20/16 08:37 12/20/16 08:37 General appearance: Present: cooperative, A&O X 3, no acute distress, obese, answers questions appropriately - Neck Neck exam general surgery: Present: supple, trachea midline. Absent: lymphadenopathy - Respiratory Respiratory exam: Present: CTAB. Absent: accessory muscle use, rales, rhonchi, wheezes - Cardiovascular Cardiovascular exam: Present: RRR, +S1, +S2. Absent: diastolic murmur, gallop, rubs, systolic murmur - GI/Abdominal GI/Abdominal exam: Present: normal bowel sounds, soft, no peritoneal signs. Absent: distended, tenderness - Extremities Exam Extremities exam: Present: warm, radial pulses palpable and symetrical. Absent : calf tenderness, cyanotic, pedal edema Additional comments: left posterior thigh cellulitis resolving with ulcer that is currently packed. - Neurological Exam Neurological exam: Present: alert, oriented X3, no focal deficits, strengths equal and symetr throughout. Absent: facial droop, speech deficit - Skin Skin exam: Present: dry, intact
[2016-12-20] MEDS ORDERED: Aminoglycoside Consult 1 EACH MC ONE (14:24)
[2016-12-20] MEDS ORDERED: Vancomycin 1,250 MG in D5% in Water 250 ML IVPB SCH (18:00)
== END 2016-12-20 14:25 | disposition home or self-care (01) | DRG 603 ==
LOC: EMEROO 23:30 → 3ANU 23:30 → SUATTDRO 12-18 05:54 → 3ANU 12-18 06:50 → SUATTDRO 12-19 16:35
PROVIDERS: ADMIT Pediatrics; ATTEND Internal Medicine